=== PATIENT | male | born 1960 | race Hispanic/Latino ===

== ENCOUNTER 2017-12-14 11:50 | Emergency (ER) | payer BC ==
[2017-12-14 12:46] LABS: #Eosinphils 0.2 thou/uL (0.0-0.7); #Lymphocytes 1.4 thou/uL (1.20-3.40); #Neutrophils 4.5 thou/uL (1.40-6.50); %Eosinophils 2.4 % (0.0-10.0); %Lymphocytes 20.1 % (21.0-51.0); %Monocytes 13.5 % (0.0-10.0); %Neutrophils 64.1 % (42.0-75.0); Hemoglobin 16.5 g/dL (14.0-18.0); Mean Corpuscular HGB CONC 35.2 g/dL (32.0-36.0); Mean Corpuscular Hemoglobin 33.5 pg (27.0-31.0); Mean Corpuscular Volume 95.3 fl (80.0-94.0); Mean Platelet Volume 7.4 fL (7.4-10.4); Platelet Count 169 thou/uL (130-400); RBC Distribution Width 11.4 % (11.5-14.5); Red Blood Cell (RBC) Count 4.92 mill/uL (4.70-6.10); White Blood Cell (WBC) Count 7.1 thou/uL (4.8-10.8)
[2017-12-14] MEDS ORDERED: Acetaminophen/Codeine 30-300mg Tablet ONE (12:52)
[2017-12-14 13:07] LABS: ALT (SGPT) 13 U/L (8-55); AST (SGOT) 15 U/L (5-34); Albumin 4.6 g/dL (3.5-5.0); Alkaline Phosphatase 69 U/L (40-150); Anion Gap 13 mmol/L (10-20); BUN (Urea Nitrogen) 15 mg/dL (8.4-25.7); Bilirubin, Total 0.9 mg/dL (0.2-1.2); Calc. Creatinine Clearance 0 mL/min (70-130); Calcium 9.8 mg/dL (7.8-10.44); Carbon Dioxide 26 mmol/L (22-29); Chloride 100 mmol/L (98-107); Estimated GFR-MDRD 82; Globulin 3.6 g/dL (2.4-3.5); Glucose 134 mg/dL (70-105); Protein, Total 8.2 g/dL (6.0-8.3); Sodium 135 mmol/L (136-145)
== END 2017-12-14 13:57 | disposition home or self-care (01) ==
LOC: ERS 11:50
DX: B02.9 Zoster without complications (principal); I10 Essential (primary) hypertension; E11.9 Type 2 diabetes mellitus without complications
CPT/HCPCS: 36415; 80053; 85025; 99283